=== PATIENT | female | born 1955 | race Two or more races ===

== ENCOUNTER 2024-09-06 22:09 | Emergency (ER) | payer MEDICARE, MEDICAID ==
[~2024-09-06] VITALS: Ht 162.6 cm; Wt 64.4 kg
[2024-09-06] MEDS ORDERED: diphenhydrAMINE 50 MG/1 ML VIAL ONE (23:05)
[2024-09-06] MEDS ORDERED: FAMOTIDINE. 20 MG/2 ML VIAL IV ONE (23:05)
[2024-09-06] MEDS ORDERED: methylPREDNISolone SOD SUCC 125 MG/2 ML VIAL ONE (23:05)
[2024-09-06 23:16] LABS: BASOPHILS % (AUTO) 0.1 % (0.0-2.0); EOSINOPHILS % (AUTO) 0.1 % (0.0-7.0); HEMATOCRIT 32.9 % (31.2-41.9); HEMOGLOBIN 10.9 g/dL (10.9-14.3); LYMPHOCYTES # (AUTO) 1.3 K/uL (0.8-4.8); LYMPHOCYTES % (AUTO) 13.9 % (20.5-51.5); MEAN CORPUSCULAR HEMOGLOBIN 29.1 uug (24.7-32.8); MEAN CORPUSCULAR HGB CONC 33 g/dL (32.3-35.6); MEAN CORPUSCULAR VOLUME 88.2 fL (75.5-95.3); MONOCYTES # (AUTO) 0.7 K/uL (0.1-1.30); MONOCYTES % (AUTO) 7.8 % (0.0-11.0); NEUTROPHILS # (AUTO) 7.2 K/uL (1.8-8.9); NEUTROPHILS % (AUTO) 78.1 % (38.5-71.5); PLATELET COUNT (AUTO) 293 K/uL (179-408); RED BLOOD CELL COUNT(AUTO) 3.73 MIL/uL (3.63-4.92); RED CELL DISTRIBUTION WIDTH 14.2 % (12.3-17.7); WHITE BLOOD COUNT (AUTO) 9.2 K/uL (3.8-11.8)
[2024-09-06] MEDS: diphenhydrAMINE 50 MG/1 ML VIAL IV ONE (23:18)
[2024-09-06] MEDS: FAMOTIDINE. 20 MG/2 ML VIAL IV ONE (23:18)
[2024-09-06] MEDS: IV NS 1000 ML 1,000 ML IV ONE (23:18)
[2024-09-06] MEDS: methylPREDNISolone SOD SUCC 125 MG/2 ML VIAL IV ONE (23:18)
[2024-09-06 23:19] LABS: ERYTHROCYTE SEDIMENTATION RATE 58 MM/HR (0-20)
[2024-09-06 23:20] LABS: DIFFERENTIAL COMMENT 1
[2024-09-06 23:24] LABS: CALCIUM 9.2 mg/dL (8.5-10.1); POTASSIUM 3.8 mmol/L (3.5-5.1)
[2024-09-06 23:25] LABS: CREATININE 0.8 mg/dL (0.6-1.3)
[2024-09-06 23:29] LABS: ALBUMIN 3.4 g/dL (3.4-5.0); BILIRUBIN,TOTAL 0.3 mg/dL (0.2-1.0); TOTAL PROTEIN, SERUM 7.4 g/dL (6.4-8.2)
[2024-09-07 00:25] VITALS: BP 140/76; O2SAT 97
[2024-09-09] MEDS ORDERED: PRED20TA PO (22:21)
[2024-09-09] MEDS ORDERED: DIPH25TA25 PO (22:21)
== END 2024-09-07 00:25 | disposition home or self-care (01) ==
LOC: EDSEX 22:09 → ER 22:09
DX: L50.9 Urticaria, unspecified (principal); E78.5 Hyperlipidemia, unspecified; E11.9 Type 2 diabetes mellitus without complications
CPT/HCPCS: 99284; 96374; 96375; 96361; 80053; 85025; 85651; 36415; J2919; J1200; J3490; J7040; A4606; A4663